=== PATIENT | male | born 1965 | race Caucasian/White ===

== ENCOUNTER 2023-02-19 12:08 | Emergency (ER) | payer MEDICAID ==
[~2023-02-19] VITALS: Ht 167.6 cm; Wt 76.0 kg
[2023-02-19 12:12] VITALS: O2SAT 98
[2023-02-19] MEDS ORDERED: LEVETIRACETAM 500MG TABLET PO ONE (12:45)
[2023-02-19 15:13] VITALS: BP 137/79; PULSE 94; RESP 14; TEMP 98.3
[2023-02-19] MEDS ORDERED: KEPP500 MT (16:23)
== END 2023-02-19 16:41 | disposition home or self-care (01) ==
LOC: ER 12:17
DX: R56.9 Unspecified convulsions (principal); S00.01XA Abrasion of scalp, initial encounter; X58.XXXA Exposure to other specified factors, initial encounter; Y93.89 Activity, other specified; Y92.89 Other specified places as the place of occurrence of the external cause; Y99.8 Other external cause status
CPT/HCPCS: 99283

== ENCOUNTER 2024-12-18 11:38 | Emergency (ER) | payer MEDICAID, OTHER ==
[~2024-12-18] VITALS: Ht 167.6 cm; Wt 68.0 kg
[~2024-12-18 11:38] MED LIST: KEPP500 MT
[2024-12-18 11:39] VITALS: O2SAT 96
[2024-12-18] MEDS: SODIUM CHLORIDE 0.9% 1,000 ML IV ONE (12:40)
[2024-12-18] MEDS: ONDANSETRON HCL 4MG/2ML INJ IV STA (12:40)
[2024-12-18] MEDS: MORPHINE SULFATE 4 MG/ML INJ (FOR IV/IM USE) IV STA (12:40)
[2024-12-18 12:41] LABS: BASOPHILS % 0.8 % (0.0-2.0); HEMATOCRIT. 40.6 % (42.0-52.0); HEMOGLOBIN. 13.6 g/dL (14.0-18.0); LYMPHOCYTES % 10.3 % (20.0-50.0); MEAN CORPUSCULAR HEMOGLOBIN 30.5 pg (28.0-32.0); MEAN CORPUSCULAR HGB CONC 33.6 g/dL (31.0-37.0); MEAN PLATELET VOLUME 8.4 fl (7.4-10.4); MONOCYTES % 7.2 % (2.0-8.0); NEUTROPHILS % 78.7 % (40.0-76.0); PLATELET 190 x1000/uL (130-400); RED BLOOD CELL COUNT 4.47 mill/uL (4.7-6.1); RED CELL DISTRIBUTION WIDTH 16.4 % (11.6-14.6); WHITE BLOOD COUNT 7.1 x1000/uL (4.5-11.0)
[2024-12-18 13:51] LABS: CHLORIDE 103 mEq/L (98-107); POTASSIUM 3.2 mEq/L (3.5-5.1); SODIUM 137 mEq/L (136-145)
[2024-12-18 13:52] LABS: CARBON DIOXIDE 24 mEq/L (21-32)
[2024-12-18 13:53] LABS: CALCIUM 10.1 mg/dL (8.7-10.4)
[2024-12-18 13:57] LABS: CREATININE 0.8 mg/dL (0.6-1.3); GLUCOSE 120 mg/dL (70-105)
[2024-12-18 13:58] LABS: TROPONIN I HIGH SENSITIVITY 4 ng/L (3.0-53); UREA NITROGEN BLOOD 11 mg/dL (9-23)
[2024-12-18 13:59] LABS: ALANINE AMINOTRANSFERASE 66 IU/L (10-49); ALBUMIN 4.7 g/dL (3.2-4.8); ASPARTATE AMINOTRANSFERASE 91 IU/L (<34)
[2024-12-18 14:00] LABS: BILIRUBIN DIRECT 0.5 mg/dL (<=3.0); BILIRUBIN TOTAL 1.4 mg/dL (0.1-1.0)
[2024-12-18] MEDS ORDERED: IOHEXOL-300 100 ML BOTTLE ONE (15:11)
[2024-12-18 15:46] LABS: INR 1.1; PROTHROMBIN TIME 11.4 sec (9.6-11.0)
[2024-12-18 15:54] LABS: TROPONIN I HIGH SENSITIVITY 4 ng/L (3.0-53)
[2024-12-18] MEDS ORDERED: IBUP-2029 MT (18:11)
[2024-12-18] MEDS ORDERED: LEVO-65 MT (18:11)
[2024-12-18 19:02] LABS: CLARITY URINE CLEAR (CLEAR); COLOR URINE YELLOW (YELLOW); GLUCOSE URINE NEGATIVE (NEGATIVE); KETONES URINE TRACE (NEGATIVE); LEUKOCYTE ESTERASE URINE NEGATIVE (NEGATIVE); NITRITE URINE NEGATIVE (NEGATIVE); OCCULT BLOOD URINE NEGATIVE (NEGATIVE); PROTEIN URINE NEGATIVE (NEGATIVE); SPECIFIC GRAVITY URINE 1.024 (1.005-1.030)
[2024-12-18] MEDS: CEFTRIAXONE SODIUM 500MG VIAL IM ONE (19:02)
[2024-12-18 19:13] VITALS: BP 146/83; PULSE 113; RESP 18; TEMP 36.4; O2SAT 96
== END 2024-12-18 19:10 | disposition home or self-care (01) ==
LOC: ER 11:38
DX: K76.0 Fatty (change of) liver, not elsewhere classified (principal); R10.31 Right lower quadrant pain; I10 Essential (primary) hypertension; E11.9 Type 2 diabetes mellitus without complications; Z79.899 Other long term (current) drug therapy
CPT/HCPCS: 80076; 80048; 81003; 83690; 85025; 85610; 84484; 36415; 71045; 74177; 93976; 76870; 96361; 96372; 96374; 96375; 99285; Q9967; J0696; J2405; J2270; J7030; Z7610 ×5; A4606